=== PATIENT | female | born 1935 | race Caucasian/White ===

== ENCOUNTER 2018-07-02 08:41 | Outpatient (CLI) | payer MEDICARE, OTHER ==
[~2018-07-02] VITALS: Ht 157.5 cm; Wt 44.4 kg
[2018-07-02] VITALS (22 sets, daily range): BP systolic 147–189; BP diastolic 71–87; PULSE 64–74
[~2018-07-02 08:41] MED LIST: ASPIRIN 81M81 MG/TA2 PO; EPA FISH OIL1 SGL PO; KLONOPIN 1MG1 MG PO; LIPITOR 10MG10 MG PO; MULTI VITAMINS1 TAB PO; NUCYNTA ER150 MG PO; PERFOROMIS20 MCG/2 M IH; PROAIR HFA0.09 MG/AC IH; PROVENTIL0.09 MG/A1 IH; RT ADVAIR 228 DISKUS IH; RT SPIRIVA18 MCG IH; SYNTHROID0.05 MG/TA PO; ULTRAM 50MG TAB50 MG PO; VITAMIN D PO; ZOLOFT 50MG50 MG PO
--- NOTE | 2018-07-02 09:55 | NUR ---
PT IS ON THE TABLE. MONITORING EQUIPMENT PLACED. IMAGES TAKEN AND SENT TO DR CARRILLO.
--- NOTE | 2018-07-02 10:05 | NUR ---
PT FEELING FINE. DR COOPERE IN AND SPOKE TO PT REGARDING PROCEDURE. PT WISHES TO PROCEED.
--- NOTE | 2018-07-02 10:10 | NUR ---
PT RESPONDS TO TOUCH AND BLOOD PRESSURE GOES DOWN. PT STATES SHE IS DOING FINE
--- NOTE | 2018-07-02 10:30 | NUR ---
WITH TOUCH AND REASSURANCE PTS BP WENT DOWN
--- NOTE | 2018-07-02 10:35 | NUR ---
PT WAS GIVEN 0.5MG VERSED AND 25 MCG FENTANYL. PT STATES SHE FEELS FINE
--- NOTE | 2018-07-02 10:50 | NUR ---
PT IS ALERT AND ORIENTED, FEELING MORE RELAXED. DENIES PAIN OR NEEDS
--- NOTE | 2018-07-02 10:55 | NUR ---
PROCEDURE IS COMPLETE. BANDAIDES APPLIED. PT TRANSFERED TO CART AND O2 @ 3L/NC.
--- NOTE | 2018-07-02 12:49 | NUR ---
Call received from Foster Levine to discharge home.
--- NOTE | 2018-07-02 13:16 | NUR ---
Discharge instructions given to pt.Pt verbalizes understanding.INT removed catheter tip intact.Pt escorted out by Vanda King.
== END 2018-07-02 13:46 | disposition home or self-care (01) ==
LOC: COL.RAD 08:41
DX: R91.8 Other nonspecific abnormal finding of lung field (principal)
CPT/HCPCS: J2250; J3010

== ENCOUNTER 2022-05-15 18:19 | Observation (INO) | payer MEDICARE, OTHER ==
[~2022-05-15] VITALS: Ht 152.4 cm; Wt 40.5 kg
--- NOTE | 2022-05-15 19:05 | NUR ---
pt admitted by ems. pt a&o resting in bed. on 2L NC. INT to RF.
[2022-05-15 20:00] VITALS: BP 150/70; PULSE 97
[2022-05-15 20:06] LABS: HEMATOCRIT 27.7 % (37.0-47.0); HEMOGLOBIN 9.1 g/dl (12.5-16.0)
[2022-05-15 23:47] VITALS: BP 137/69; PULSE 103; TEMP 98.4
--- NOTE | 2022-05-16 01:31 | NUR ---
pt bs 67 after tx for hyperkalemia, orange juice and dextrose tablets given. pt asymptomatic.
[2022-05-16] MEDS ORDERED: TYLENOL 325MG325 MG PO (02:34)
[2022-05-16] MEDS ORDERED: DULCOLAX STOOL100 MG PO (02:34)
[2022-05-16] MEDS ORDERED: FENTANYL 12MCG TD (02:35)
[2022-05-16] MEDS ORDERED: ATARAX 25MG25 MG/TAB PO (02:36)
[2022-05-16] MEDS ORDERED: FERROUS SU325 MG/TAB PO (02:36)
[2022-05-16] MEDS ORDERED: NARCAN4 MG NS (02:37)
[2022-05-16] MEDS ORDERED: MIRALAX PA17 GM/Dose PO (02:37)
[2022-05-16] MEDS ORDERED: IMODIUM A-D2 MG PO (02:37)
[2022-05-16] MEDS ORDERED: SENNA8.8 MG/5 M PO (02:38)
[2022-05-16] MEDS ORDERED: VITAMIN D362.5 MC1 PO (02:39)
[2022-05-16 03:16] LABS: HEMATOCRIT 24.3 % (37.0-47.0)
[2022-05-16 03:47] VITALS: BP 143/49; PULSE 80; TEMP 97.6
[2022-05-16 06:49] LABS: INR 1.1 (0.8-3.0); PROTHROMBIN TIME 12.4 SECONDS (9.7-12.8)
[2022-05-16 07:05] LABS: CALCIUM 9.6 mg/dL (8.4-10.2); CREATININE, serum 1.72 mg/dL (0.57-1.11); POTASSIUM 4.3 mmol/L (3.5-4.5)
[2022-05-16 07:08] VITALS: BP 144/47; PULSE 74; TEMP 97.3
[2022-05-16 07:14] LABS: HEMATOCRIT 24.3 % (37.0-47.0); HEMOGLOBIN 7.7 g/dl (12.5-16.0)
--- NOTE | 2022-05-16 08:18 | NUR ---
Patient correctly answered all alert and oriented questions, but was forgetful with historical questions.
--- NOTE | 2022-05-16 08:29 | NUR ---
Pt. laying in bed. Pt. is A&OX3, assessment complete. INT to rt. forearm patent. Pt. reports pain to back. Pt. denies further needs, call light within reach.
--- NOTE | 2022-05-16 08:49 | NUR ---
LAURIE met with the patient to discuss discharge plan. The patient resides at [facility] in [place]. She reports independence with ADLs and has home oxygen. She believes she got her oxygen from the [place]. The patient's PCP is Dr. Christine Hearn and she receives her medications from [place]. The patient's DPOA-HC is in her chart and it designates her daughter, Mimi Greenfield (ph#[phone]). Mimi lives in [place]. The patient states that the plan is to return back to [facility] upon discharge. LAURIE attempted to contact the patient's RN at [facility] and left her a voicemail. LAURIE faxed updates to [facility]. [facility] ph#[phone], fx#[phone]. *Discharge plan: [facility]*
[2022-05-16 13:07] LABS: HEMATOCRIT 23.6 % (37.0-47.0); HEMOGLOBIN 7.5 g/dl (12.5-16.0)
[2022-05-16 15:50] VITALS: BP 139/60; PULSE 79; TEMP 97.8
[2022-05-16 18:39] LABS: HEMATOCRIT 24.3 % (37.0-47.0); HEMOGLOBIN 7.9 g/dl (12.5-16.0)
[2022-05-16 19:14] VITALS: BP 139/67; PULSE 79; TEMP 97.7
--- NOTE | 2022-05-16 20:30 | NUR ---
pt resting in bed, reports increased back pain. pain medication administered per emar. fentanyl patch to right shoulder. vss and tele in place. pt on 3l nc. assisted pt to sit up to eat. INT to left forearm. fall precautions in place. no needs at this time. call light in reach.
--- NOTE | 2022-05-16 21:21 | NUR ---
1931 - PRESENTED TO ROOM TO ADMIN TREATMENT AND CHECK O2. PT STATING SHE IS IN PAIN AND THAT SHE WOULD LIKE HER PAIN MEDS OR SHE "WON'T BE ABLE TO SLEEP". NO TX GIVEN DUE TO PAIN AT THAT TIME. STATED WOULD COME BACK TO CHECK ON HER. UNABLE TO MAKE IT BACK TO ROOM DUE TO CRITICAL PT IN ANOTHER UNIT. NO CALLS FROM PT BARREL INSPECTOR.
[2022-05-16 23:15] VITALS: BP 148/47; PULSE 81; TEMP 98.3
[2022-05-17] VITALS (12 sets, daily range): BP systolic 99–153; BP diastolic 37–82; PULSE 61–97; TEMP 97.6–98.4
[2022-05-17 01:09] LABS: HEMOGLOBIN 7.4 g/dl (12.5-16.0)
[2022-05-17 01:10] LABS: HEMATOCRIT 23.4 % (37.0-47.0)
[2022-05-17 07:02] LABS: BILIRUBIN,TOTAL 0.3 mg/dL (0.2-1.2); CALCIUM 9.7 mg/dL (8.4-10.2); CREATININE, serum 1.57 mg/dL (0.57-1.11); POTASSIUM 4.4 mmol/L (3.5-4.5); TOTAL PROTEIN 6.7 gm/dL (6.2-8.1)
[2022-05-17 08:07] LABS: BASO % 0.4 % (0.0-2.0); EOS # 0.2 K/mm3 (0.0-0.7); EOS % 2.5 % (0.0-4.0); GRAN # 5.2 K/mm3 (1.4-6.5); GRAN % 68.9 % (42.2-75.2); LYMPH # 1.4 K/mm3 (1.2-3.4); LYMPH % 18.2 % (20.0-51.0); MEAN CELL VOLUME 103 fl (80.0-100.0); MEAN CORPUSCULAR HGB CONC 31 g/dl (33.0-37.0); MEAN PLATELET VOLUME 9.8 fl (7.4-10.4); MONO # 0.7 K/mm3 (0.1-0.6); MONO % 9.6 % (1.7-9.3); PLATELET COUNT 244 K/mm3 (130-400); RED BLOOD COUNT 2.32 M/mm3 (4.10-5.30); REDCELL DISTRIBUTION WIDTH-CV 16.7 % (11.5-14.5)
[2022-05-17 08:10] LABS: HEMATOCRIT 23.8 % (37.0-47.0); HEMOGLOBIN 7.4 g/dl (12.5-16.0); MEAN CORPUSCULAR HEMOGLOBIN 32 pg (27-31)
--- NOTE | 2022-05-17 08:53 | NUR ---
To ultrasound at this time.
--- NOTE | 2022-05-17 09:07 | NUR ---
pt transported to ct per wheelchair per post doctoral fellow. Pt positioned in prone position on ct table. Monitors applied. O2 on at 2l/nc
--- NOTE | 2022-05-17 09:20 | NUR ---
assisted pt in repositioning neck due to discomfort.
--- NOTE | 2022-05-17 09:24 | NUR ---
Initial visit; Patient a former nurse and frightened thanked Public Accountant and nurse for being with her and offering reassurance and a blessing. Patient's daughter on her way and Public Accountant will keep Pam in her prayers.
--- NOTE | 2022-05-17 09:36 | NUR ---
Specimen obtained by Dr Swain and placed in formalin. Specimen labeled.
--- NOTE | 2022-05-17 12:50 | NUR ---
Oncology office notified of new consult.
[2022-05-17 12:52] LABS: HEMATOCRIT 22.7 % (37.0-47.0); HEMOGLOBIN 7.2 g/dl (12.5-16.0)
--- NOTE | 2022-05-17 15:25 | NUR ---
PT is recommending home health vs SNF. OT is recommending possibly SNF. LAURIE met with the patient and her daughter, Mimi, to discuss their recommendations. Mimi states that the patient would prefer to return back to [facility] with home health and she supports this. She states that she is pretty sure [facility] had just set the patient up with home health through [facility]. LAURIE contacted RM Chirinos at [facility], and updated her on the above. Candis confirms that the patient was established with home health through [facility]. She confirms they can take the patient back upon discharge. LAURIE faxed updates to [facility]. LAURIE contacted and faxed updates to Aniyah at [facility]. Aniyah also confirms they can resume services upon discharge. *Discharge plan: [facility] with home health*
[2022-05-17] MEDS ORDERED: PROTONIX 40MG T40 MG PO ×2 (17:00)
[2022-05-17 17:20] LABS: HEMATOCRIT 22.5 % (37.0-47.0)
--- NOTE | 2022-05-17 19:12 | NUR ---
Bharti has had an uneventful day. Denie enedelia/nausea/shortness of breath. VS remained stable. H/H dropped slightly over this shift so will stay overnight for trending. Family at bedside. Call light in reach. Will monitor.
--- NOTE | 2022-05-17 20:04 | NUR ---
pt sitting up in recliner, daughter at bedside. meds given and assessment complete. vss and tele in place. fall precautions implemented. INT to left wrist. pt on 3l nasal cannula. back biopsy bandage is cdi. no needs at this time. call light in reach.
[2022-05-17 22:23] LABS: HEMOGLOBIN 7.4 g/dl (12.5-16.0)
[2022-05-18 00:23] VITALS: BP 112/40; PULSE 71; TEMP 98.2
[2022-05-18 03:00] VITALS: BP 139/60; PULSE 101; TEMP 97.9
--- NOTE | 2022-05-18 05:30 | NUR ---
pt slept throughout the night. no complaints of pain.
[2022-05-18 08:00] VITALS: BP 158/89; PULSE 81; TEMP 98.6
--- NOTE | 2022-05-18 08:30 | NUR ---
PATIENT AWAKE AND ALERT, RESTING IN BED. CALL LIGHT WITHIN REACH. PATIETNS DAUGHTER AT BEDSIDE. PATIETN DENEIS ANY NEEDS OR COMPLAINTS AT THIS TIME BESIDES WANTING TO DISCHARGE.
[2022-05-18] MEDS ORDERED: ULTRAM 50MG TAB50 MG PO (08:33)
[2022-05-18] MEDS ORDERED: TYLENOL 500MG500 MG PO (08:33)
[2022-05-18 08:36] LABS: KAPPA FREE LIGHT CHAIN-SERUM 90.32 mg/L (()); LAMDA FREE LIGHT CHAIN SERUM 23.18 mg/L (())
--- NOTE | 2022-05-18 08:40 | NUR ---
The patient is to discharge today, 05/18, back to [facility] with home health services for nursing home/PT/OT from [facility]. LAURIE attempted to notify Aniyah at [facility]. LAURIE left her a voicemail and faxed over discharge orders. No additional needs at this time.
--- NOTE | 2022-05-18 10:07 | NUR ---
CALL RECIEVED FROM [facility]. MEDICATION ORDERS RECIEVED, HOWEVER WILL NOT BE READY FOR TELEPHONE STATION REPAIRER UNTIL APROX 2-3 PM. PHARMACY GIVEN DAUGHTERS PHONE NUMBER(WHOM WILL BE PICKING IT UP) TO TEXT/CALL WHEN PRESCRIPTION IS READY.
--- NOTE | 2022-05-18 10:45 | NUR ---
PATIENT IV AND TELE DISCONTINUED. ASSISTED BY NINA WITH PT TO DRESS PATIENT FOR DISCHARGE. AWAITING PATIENTS OTHER DAUGHTERS ARRIVAL FOR DISCHARGE INSTRUCITONS AND EDUCATION TO BE GIVEN.
--- NOTE | 2022-05-18 11:30 | NUR ---
PATIENT TAKEN VIA WHEELCHAIR TO ER ENTRANCE BY PCT. PATIENT LEFT IN STABLE CONDITION WITH HER DAUGTHER TAWNY.
[2022-05-21 10:15] LABS: KAPPA FREE LIGHT CHAIN-URINE 4.08 mg/dL (<0.9000); LAMBDA FREE LIGHT CHAIN-URINE <0.7000 mg/dL (<0.7000)
[2022-05-23 08:13] LABS: A/G RATIO (PEP) 0.75 (()); BETA GLOBULINS (PEP) 2.5 g/dL (0.7-1.2)
== END 2022-05-18 11:30 | disposition home or self-care (01) ==
LOC: SURG 18:19
PROVIDERS: Hospitalist; Internal Medicine Gastroenterology; Student in an Organized Health Care Education/Training Program; ADMIT Internal Medicine
DX: C16.9 Malignant neoplasm of stomach, unspecified (principal); K92.1 Melena; K25.9 Gastric ulcer, unspecified as acute or chronic, without hemorrhage or perforation; K29.70 Gastritis, unspecified, without bleeding; D50.0 Iron deficiency anemia secondary to blood loss (chronic); Q27.33 Arteriovenous malformation of digestive system vessel; E87.5 Hyperkalemia; J44.9 Chronic obstructive pulmonary disease, unspecified; J96.11 Chronic respiratory failure with hypoxia; I10 Essential (primary) hypertension; N18.4 Chronic kidney disease, stage 4 (severe); E78.5 Hyperlipidemia, unspecified; I12.9 Hypertensive chronic kidney disease with stage 1 through stage 4 chronic kidney disease, or unspecified chronic kidney disease; M48.54XA Collapsed vertebra, not elsewhere classified, thoracic region, initial encounter for fracture; R91.1 Solitary pulmonary nodule; M89.8X8 Other specified disorders of bone, other site; E03.9 Hypothyroidism, unspecified; Z79.899 Other long term (current) drug therapy; Z99.81 Dependence on supplemental oxygen; Z79.890 Hormone replacement therapy; Z87.891 Personal history of nicotine dependence; Z79.82 Long term (current) use of aspirin
CPT/HCPCS: C9113; G0378; G0379; J1815; J2405; J2704